=== PATIENT | male | born 1970 | race African-American/Black ===

== ENCOUNTER 2023-04-17 06:09 | Day surgery (SDC) | payer OTHER ==
[2023-04-13 10:23] VITALS: BMI 36.8
[2023-04-17] MEDS ORDERED: TETRACAINE 0.5% OPHTH SOLN 2 ML BOTTLE ONE (07:12)
[2023-04-17] MEDS ORDERED: ceFAZolin SODIUM 1 GM VIAL ONE ×2 (07:12→08:24)
[2023-04-17] MEDS ORDERED: ERYTHROMYCIN 0.5% OPHTHALMIC OINTMENT 3.5 GM TUBE ONE (07:12)
[2023-04-17] MEDS ORDERED: POVIDONE-IODINE 5% OPHTHALMIC PREP 30 ML SOLUTION ONE (07:13)
[2023-04-17] MEDS ORDERED: LIDOCAINE 1%/EPI 1:100000 (20 ML MULTI DOSE VIAL) ONE (07:13)
[2023-04-17] MEDS ORDERED: BUPIVACAINE HCL/PF 0.5% (5MG/ML) 10 ML VIAL ONE (07:13)
[2023-04-17] MEDS ORDERED: MIDAZOLAM HCL 2 MG/2 ML SINGLE DOSE VIAL ONE ×2 (07:34→08:29)
[2023-04-17] MEDS ORDERED: PROPOFOL 20 ML ONE ×2 (07:34→09:19)
[2023-04-17] MEDS ORDERED: DEXAMETHASONE SOD PHOSPHATE 4 MG/1 ML VIAL ONE (08:27)
[2023-04-17] MEDS ORDERED: ONDANSETRON 4 MG/2 ML VIAL ONE (08:27)
[2023-04-17] MEDS ORDERED: ONDANSETRON 4 MG/2 ML VIAL IVPUSH PRN (09:34)
[2023-04-17] MEDS ORDERED: LACTATED RINGERS SOLUTION 1,000 ML IV SCH (09:45)
[2023-04-17] MEDS ORDERED: oxyCODONE HCL 5 MG TABLET PO PRN (11:26)
[2023-04-17] MEDS ORDERED: ACETAMINOPHEN 500 MG TABLET (FP) PO ONE (11:26)
[2023-04-17 12:25] VITALS: RESP 18
[2023-04-17 12:30] VITALS: BP 169/93; PULSE 87; TEMP 97.3
== END 2023-04-17 12:40 | disposition home or self-care (01) ==
LOC: FASU 06:09
PROVIDERS: ATTEND Ophthalmology
PROC: 0KX10ZZ Transfer Facial Muscle, Open Approach (ICD-10-PCS; 2023-04-17)
PROC: 08BN0ZZ Excision of Right Upper Eyelid, Open Approach (ICD-10-PCS; principal; 2023-04-17 08:07)
DX: H02.001 Unspecified entropion of right upper eyelid (principal)
CPT/HCPCS: 94760